=== PATIENT | female | born 1990 | race Caucasian/White ===

== ENCOUNTER 2024-07-03 12:44 | Emergency (ER) | payer SELFPAY ==
[2024-07-03 12:48] VITALS: BP 148/98
--- NOTE | 2024-07-03 13:19 | ED.GENMED ---
History of Present Illness
General
Chief Complaint: Dental Problem
Time Seen by Provider: 07/03/24 13:05
History of Present Illness
History of Present Illness:
33-year-old female without significant past medical history presenting for dental pain. Patient reports for the past few days she has been having left upper tooth pain. Notes that she has had this issue in the past, notes that she has a broken
tooth. She has not seen a dentist in about a decade. Notes some chills, denies fever. Denies issues swallowing. Denies any drainage to the area. Denies additional acute medical complaints
Phy Exam
Physical Exam
Physical Exam:
General: Well-appearing, no clinical signs of dehydration, nontoxic and in no acute distress
HEENT: protecting airway. Dental caries. Necrosis to tooth #13. Inflammation to the gums without palpation of any external abscess, no fluctuance. No trismus
Neck: appears supple
CV: Normal heart rate
Resp: No accessory muscle use, no increased work of breathing
Abd: no distension
Extremities: No deformities, no swelling
Neuro: alert, no focal neurologic deficit
: deferred
Rectal: deferred
Psych: Normal affect
Skin: Intact
Course
Orders/Labs/Results
Orders:
Orders
07/03/24 13:18
Ketorolac [Toradol] 15 mg IM NOW STA
Penicillin V Potassium [Pen Vk] 500 mg PO NOW STA
Vital Signs
Initial and Last Documented VS:
Initial Vital Signs
Temp Pulse Resp BP Pulse Ox
98.4 F 93 16 148/98 98
07/03/24 12:48 07/03/24 12:48 07/03/24 12:48 07/03/24 12:48 07/03/24 12:48
Last Documented Vital Signs
Temp Pulse Resp BP Pulse Ox
98.4 F 93 16 148/98 98
07/03/24 12:48 07/03/24 12:48 07/03/24 12:48 07/03/24 12:48 07/03/24 12:48
MDM/Problems Addressed
MDM/Problems Addressed:
33-year-old female presenting for dental pain. Vital signs on arrival are normal.
On exam patient is well-appearing, nontoxic. Patient with multiple dental caries and necrosis to tooth #13 with generalized inflammation. No fluctuance or indication of external gum abscess. Apical abscess is a consideration. Minimal facial
swelling. No trismus or compromise to the airway. Will start patient on penicillin VK. Otherwise feel stable for discharge. Educated importance of dental follow-up. Return precautions discussed and patient verbalized understanding
*Critical Care Note
Total Time (30-74mins, 75-104mins- exclusive of procedures): Not Applicable
ED Attending Note
-
Portions of this chart may have been created with voice recognition software.� Occasional wrong word or��sound alike� substitutions may have occurred due to the inherent limitations of voice recognition software.
Discharge Plan
Departure
Patient Disposition: Home (Routine Discharge)
Date of Disposition: 07/03/24
Time of Disposition: 13:27
Patient with high blood pressure during this ER visit?: No
Condition: Good
Discharge Problem:
Pain, dental, Dental caries
Instructions: Dental Pain (DC)
Prescriptions:
New
penicillin V potassium 500 mg tablet
500 mg PO QID 7 Days Qty: 28 0RF
Referrals:
NONE,* [Family Provider] -
Stand Alone Forms: Return to Work
Activity Restrictions/Additional Instructions:
You were seen in the emergency department for dental pain
You were started on an antibiotic for suspected infection. Please follow-up with a dentist as soon as possible.
Please follow-up closely with your primary care physician.
Return to the emergency department for any worsening of your symptoms, or any development of chest pain, difficulty breathing, abdominal pain with persistent vomiting and inability to tolerate food or liquid by mouth (concern for dehydration),
weakness, headache or confusion, fever greater than 100.4, or any additional symptoms that are concerning to you.
Thank you for choosing [facility]
Interventions
Interventions:
*Risk Screen - Suicide Last Done: 07/03/24 12:48
*General Assessment Last Done: 07/03/24 12:48
*Neglect/Abuse Screening Last Done: 07/03/24 12:48
*ED- Fall Risk Assessment Last Done: 07/03/24 12:48
*ED COVID-19 Vaccine History Last Done: 07/03/24 12:48
Discharge Date and Time
Print Language: PANAMANIAN
[2024-07-03] MEDS: TORADOL 15 MG IM (13:35)
[2024-07-03 13:47] VITALS: BP 144/90
== END 2024-07-03 14:17 | disposition home or self-care (01) ==
LOC: EMR 12:44
PROVIDERS: EMERGENCY PHYSICIAN Student in an Organized Health Care Education/Training Program
DX: K02.9 Dental caries, unspecified (principal); K04.1 Necrosis of pulp
CPT/HCPCS: 96372; 99284